=== PATIENT | female | born 1965 | race Two or more races ===

== ENCOUNTER 2017-10-28 16:02 | Emergency (ER) | payer OTHER, MEDICAID ==
[~2017-10-28] VITALS: Ht 165.1 cm; Wt 74.8 kg
--- NOTE | 2017-10-28 16:59 | NUR ---
RECIEVED PT AT THIS TIME. WHEELED FROM ED HALLWAY TO ED BED 11. [id number] FROM FROM HOME FOR ALOC, S/P TAKING SOMAS PER PARAMEDICS. A/OX2, NAD VSS RR EVEN AND UNLABORED. WILL CONT TO MONITOR
--- NOTE | 2017-10-28 17:00 | NUR ---
Note undone in EDM - 10/28/17 at 1917 by TONY RECIEVED PT AT THIS TIME. WHEELED FROM ED HALLWAY TO ED BED 11. [id number]: ALOC, S/P TAKING SOMAS PER PARAMEDICS. A/OX2, NAD VSS RR EVEN AND UNLABORED. WILL CONT TO MONITOR
[2017-10-28 17:21] LABS: CALCIUM, SERUM 8.6 mg/dL (8.5-10.1); CREATININE 0.9 mg/dL (0.6-1.3)
[2017-10-28 17:27] LABS: ALBUMIN 3.3 g/dL (3.4-5.0); BILIRUBIN,TOTAL 0.1 mg/dL (0.2-1.0); TOTAL PROTEIN, SERUM 6.9 g/dL (6.4-8.2)
[2017-10-28 17:29] LABS: BASOPHILS % (AUTO) 0.6 % (0.0-2.0); EOSINOPHILS # (AUTO) 0.1 /CMM (0.0-0.7); EOSINOPHILS % (AUTO) 2.1 % (0.0-6.0); HEMATOCRIT 37 % (33-45); HEMOGLOBIN 12.3 g/dL (11.5-14.8); LYMPHOCYTES # (AUTO) 2.6 /CMM (0.8-4.8); LYMPHOCYTES % (AUTO) 48.2 % (20.0-44.0); MEAN CORPUSCULAR HEMOGLOBIN 30 PG (26.0-33.0); MEAN CORPUSCULAR HGB CONC 33 g/dl (31.0-36.0); MEAN CORPUSCULAR VOLUME 92 fL (82-100); MONOCYTES # (AUTO) 0.4 /CMM (0.1-1.30); MONOCYTES % (AUTO) 7.3 % (2.0-12.0); NEUTROPHILS # (AUTO) 2.3 /CMM (1.8-8.9); NEUTROPHILS % (AUTO) 41.8 % (43.0-81.0); PLATELET COUNT (AUTO) 369 /CMM (150-450); RDW COEFFICIENT OF VARIATION 18.7 (11.5-15.0); RED BLOOD CELL COUNT(AUTO) 4.06 MIL/uL (4.0-5.2); WHITE BLOOD COUNT (AUTO) 5.5 K/uL (4.3-11.0)
[2017-10-28 18:18] VITALS: BP 119/65
--- NOTE | 2017-10-28 19:34 | NUR ---
NO PT FOUND IN ROOM; WALKED OUT AND FOUND PT LEAVING WITH RIDE. REMOVED HL. STATES "AM GOING HOME". DENIES ANY SX'S AT THIS TIME. RESP EVEN AND UNLABORED. STAEDY GAIT.
== END 2017-10-28 19:40 | disposition left against medical advice (07) ==
LOC: ER 16:04
DX: R41.82 Altered mental status, unspecified (principal); F10.10 Alcohol abuse, uncomplicated
CPT/HCPCS: 36415; 70450; 71045; 80048; 80076; 80305; 85025; 99285; A4606; G0480; Z7610